=== PATIENT | female | born 2000 | race Caucasian/White ===

== ENCOUNTER 2022-10-14 15:59 | Emergency (ER) | payer BC ==
[~2022-10-14 15:59] MED LIST: Iopamidol 300 61% 100 ML VIAL FS ONE
[2022-10-14 16:45] LABS: #Eosinphils 0.3 10x3/uL (0.0-0.5); #Monocytes 0.6 10x3/uL (0.0-1.1); %Basophils 0.6 % (0.0-2.0); %Eosinophils 3.7 % (0.0-6.0); %Lymphocytes 28.7 % (18.0-47.0); %Monocytes 8.5 % (0.0-10.0); %Neutrophils 58.4 % (40.0-75.0); Hemoglobin 14.3 g/dL (12.0-15.5); Mean Corpuscular Hemoglobin 29.9 pg (27.0-33.0); Mean Corpuscular Volume 87.7 fl (81.6-98.3); Mean Platelet Volume 10.1 fl (7.4-10.4); Platelet Count 265 10x3/uL (150-450); RBC Distribution Width 11.6 % (11.5-14.5); Red Blood Cell (RBC) Count 4.79 10x6/uL (3.90-5.03); White Blood Cell (WBC) Count 6.8 10x3/uL (3.5-10.5)
[2022-10-14 16:50] LABS: Bilirubin Neg (Negative); Blood, Urine 50 (Negative); Clarity Cloudy (Clear); Glucose, Urine (Dipstick) Normal (Negative); Ketone, Urine Negative (Negative); Leukocyte 100 (Negative); Nitrite Positive (Negative); Protein, Urine (Dipstick) 15 mg/dl (Neg-Trace); Urobilinogen Normal mg/dL (Less than 2)
[2022-10-14 16:54] LABS: Pregnancy Test - Urine (BHCG) Negative (Negative); Pregu Control Background? CLEAR/WHITE (CLR/WHITE); Pregu Control Bar Appear? YES (CONTROL BAR)
[2022-10-14 16:59] LABS: ALT (SGPT) 28 U/L (8-55); AST (SGOT) 26 U/L (5-34); Albumin 4.2 g/dL (3.5-5.0); Alkaline Phosphatase 92 U/L (40-110); Anion Gap 14 mmol/L (10-20); BUN (Urea Nitrogen) 6 mg/dL (7.0-18.7); Bilirubin, Total 1.1 mg/dL (0.2-1.2); Calc. Creatinine Clearance 0 mL/min (70-130); Calcium 9.3 mg/dL (7.8-10.44); Carbon Dioxide 23 mmol/L (22-29); Chloride 107 mmol/L (98-107); Estimated GFR 108; Globulin 3.1 g/dL (2.4-3.5); Glucose 94 mg/dL (70-105); Potassium 3.9 mmol/L (3.5-5.1); Protein, Total 7.3 g/dL (6.0-8.3); Sodium 140 mmol/L (136-145)
[2022-10-14 17:04] LABS: Bacteria/HPF 2+ HPF (None Seen); Mucous/LPF 1+ LPF (<2+)
[2022-10-14] MEDS ORDERED: Ondansetron PF 4 MG/2 ML Vial ONE (17:06)
[2022-10-14] MEDS ORDERED: Ketorolac Tromethamine 30 MG/ML VIAL ONE (17:06)
[2022-10-14] MEDS ORDERED: cefTRIAXone\\ROCEPHIN 1 GM VIAL ONE (17:08)
== END 2022-10-14 19:26 | disposition home or self-care (01) ==
LOC: CSHERS 15:59
DX: N10 Acute pyelonephritis (principal)
CPT/HCPCS: 36415; 74177; 80053; 81003; 81015; 81025; 83690; 85025; 87077; 87086; 96365; 96375; J0696; J1885; J2405; Q9967